=== PATIENT | female | born 1950 | race Caucasian/White ===

== ENCOUNTER → 2017-04-26 | Outpatient (CLI) | payer BC, OTHER | LOC: MRI 13:48 | DX: M54.5 Low back pain (principal); R20.0 Anesthesia of skin; R53.1 Weakness ==

== ENCOUNTER 2017-11-03 22:21 | Emergency (ER) | payer BC, OTHER ==
[~2017-11-03] VITALS: Ht 160 cm; Wt 77.1 kg
[2017-11-03] MEDS ORDERED: PEPCID20 MG PO (22:33)
[2017-11-03] MEDS ORDERED: CARVEDILOL3.125 MG PO (22:33)
[2017-11-03] MEDS ORDERED: BENADRYL25 MG (22:33)
[2017-11-03] MEDS ORDERED: DIGOXIN250 MCG PO (22:33)
[2017-11-03] MEDS ORDERED: ZESTRIL10 MG PO (22:34)
[2017-11-03] MEDS ORDERED: PAXIL10 MG PO (22:34)
[2017-11-03] MEDS ORDERED: HYDROCHLOROTH12.5 M1 PO (22:34)
[2017-11-03] MEDS ORDERED: ALPRAZOLAM 0.0.25 M1 PO (22:35)
[2017-11-03] MEDS ORDERED: METFORMIN HCL500 MG PO (22:35)
[2017-11-03] MEDS ORDERED: IMDUR 30 MG TAB30 M1 PO (22:35)
[2017-11-03] MEDS ORDERED: PROTONIX40 M4 PO (22:39)
[2017-11-03] MEDS ORDERED: ESTRADIOL 1 MG T1 M1 PO (22:40)
[2017-11-03] MEDS ORDERED: MEDROXYPROGESTER5 MG (22:41)
[2017-11-03] MEDS ORDERED: ZOCOR40 MG PO (22:42)
[2017-11-03] MEDS ORDERED: ASPIRIN81 M2 PO (22:44)
[2017-11-03] MEDS ORDERED: TRULICITY1.5 MG/0.5 SUBQ (22:46)
[2017-11-03] MEDS ORDERED: JANUVIA100 MG PO (22:46)
[2017-11-03] MEDS ORDERED: FISH OIL 1,001000 M2 PO (22:47)
[2017-11-03] MEDS ORDERED: CALCIUM 500 +1 EAC5 PO (22:51)
[2017-11-03] MEDS ORDERED: MAGNESIUM400 MG PO (22:51)
[2017-11-03] MEDS ORDERED: VITAMIN B-12500 MCG PO (22:51)
[2017-11-03] MEDS ORDERED: ACIDOPHILUS1 EAC2 PO (22:51)
[2017-11-03] MEDS ORDERED: VITAMIN D3400 UNIT PO (22:52)
[2017-11-03] MEDS ORDERED: VITAMINC500 PO (22:54)
== END 2017-11-04 00:28 | disposition home or self-care (01) ==
LOC: ER 22:21
DX: T78.3XXA Angioneurotic edema, initial encounter (principal); R22.0 Localized swelling, mass and lump, head; E11.9 Type 2 diabetes mellitus without complications; I10 Essential (primary) hypertension; F17.210 Nicotine dependence, cigarettes, uncomplicated; Z91.041 Radiographic dye allergy status; X58.XXXA Exposure to other specified factors, initial encounter

== ENCOUNTER 2017-11-07 22:05 | Emergency (ER) | payer BC, OTHER ==
[~2017-11-07] VITALS: Ht 160 cm; Wt 77.1 kg
[~2017-11-07 22:05] MED LIST: ACIDOPHILUS1 EAC2 PO; ALPRAZOLAM 0.0.25 M1 PO; ASPIRIN81 M2 PO; BENADRYL25 MG; CALCIUM 500 +1 EAC5 PO; CARVEDILOL3.125 MG PO; DIGOXIN250 MCG PO; ESTRADIOL 1 MG T1 M1 PO; FISH OIL 1,001000 M2 PO; HYDROCHLOROTH12.5 M1 PO; IMDUR 30 MG TAB30 M1 PO; JANUVIA100 MG PO; MAGNESIUM400 MG PO; MEDROXYPROGESTER5 MG; METFORMIN HCL500 MG PO; PAXIL10 MG PO; PEPCID20 MG PO; PROTONIX40 M4 PO; TRULICITY1.5 MG/0.5 SUBQ; VITAMIN B-12500 MCG PO; VITAMIN D3400 UNIT PO; VITAMINC500 PO; ZESTRIL10 MG PO; ZOCOR40 MG PO
[2017-11-07 22:59] LABS: ABSOLUTE NEUTROPHILS 6.3 thou/uL (1.4-8.2); BASOPHILS 0.4 % (0.0-2.0); EOSINOPHILS 1.1 % (0.0-3.0); HEMATOCRIT 51.6 % (37.0-47.0); HEMOGLOBIN 17.6 gm/dL (12.0-15.0); LYMPHOCYTES 21.1 % (24.0-44.0); MCHC 34.1 g/dL (28.0-37.0); MCV 93.9 fL (80.0-100.0); MONOCYTES 4.9 % (1.0-8.0); PLATELET COUNT 236 thou/uL (150-400); POLYS 72.5 % (36.0-66.0); RDW 13.5 % (10.5-14.5); WBC 8.7 thou/uL (4.0-11.0)
[2017-11-07 23:13] LABS: CALCIUM 9.9 mg/dL (8.5-10.1); CREATININE 0.9 mg/dL (0.6-1.0); POTASSIUM 5.1 mmol/L (3.5-5.1)
[2017-11-07 23:20] LABS: DIGOXIN 0.7 ng/mL (0.9-2.0)
[2017-11-08] MEDS ORDERED: HYDROXYZINE HCL25 M1 PO (01:02)
== END 2017-11-08 01:26 | disposition home or self-care (01) ==
LOC: ER 22:05
PROVIDERS: Physician Assistant
DX: R21 Rash and other nonspecific skin eruption (principal); E11.9 Type 2 diabetes mellitus without complications; I10 Essential (primary) hypertension; E78.5 Hyperlipidemia, unspecified; F17.210 Nicotine dependence, cigarettes, uncomplicated; Z91.041 Radiographic dye allergy status

== ENCOUNTER → 2020-05-18 | Outpatient (CLI) | payer BC, OTHER ==
[~2020-05-18] MED LIST changes: +HYDROXYZINE HCL25 M1 PO
== END ==
LOC: BC 08:45 → ULTRA 08:45
PROVIDERS: ATTEND Nurse Practitioner
DX: Z12.31 Encounter for screening mammogram for malignant neoplasm of breast (principal); N60.81 Other benign mammary dysplasias of right breast; M79.89 Other specified soft tissue disorders

== ENCOUNTER → 2021-07-16 | Outpatient (CLI) | payer BC, OTHER | LOC: ULTRA 07-01 09:06 | PROVIDERS: ATTEND Nurse Practitioner | DX: M51.16 Intervertebral disc disorders with radiculopathy, lumbar region (principal); M79.604 Pain in right leg; M79.605 Pain in left leg; R25.2 Cramp and spasm ==